=== PATIENT | female | born 1990 ===

== ENCOUNTER 2016-06-24 20:51 | Emergency (ER) | payer SELFPAY ==
[2016-06-24 20:58] VITALS: BP 108/67; PULSE 73; RESP 16; TEMP 98.2; O2SAT 99
--- NOTE | 2016-06-24 21:14 | ED PDOC ---
HPI: Female Pain Time Seen by Provider: 06/24/16 21:05 Chief Complaint (Nursing): Abdominal Pain Chief Complaint (Provider): vaginal bleeding History Per: Patient History/Exam Limitations: no limitations Onset/Duration Of Symptoms: Days (1) Current Symptoms Are (Timing): Still Present Quality Of Discomfort: Cramping Additional History Per: Patient Additional Complaint(s): 25 y/o female presents for eval of vaginal bleeding x 1 day. Associated pelvic cramping x 1 week, radiating to the lower back. Patient was seen at [facility] today and sent to ED for eval of possible cyst. Denies fever, nausea/vomiting, chest pain, changes in bowel movements, dysuria, hematuria, vaginal discharge. No reason to suspect STD Abnormal Vaginal Bleeding: Yes Last Menstral Period: 06/05/16 Past Medical History Reviewed: Historical Data, Nursing Documentation, Vital Signs Vital Signs: Last Vital Signs Temp 98.2 F 06/24/16 20:56 Pulse 73 06/24/16 20:56 Resp 16 06/24/16 20:56 BP 108/67 06/24/16 20:56 Pulse Ox 99 06/24/16 20:56 - Medical History PMH: No Chronic Diseases - Surgical History Surgical History: - Family History Family History: States: Unknown Family Hx - Home Medications Home Medications: Ambulatory Orders Medication Instructions Recorded Cyclobenzaprine HCl [Flexeril] 1 tab PO TID PRN #15 tab 01/29/14 Ibuprofen [Motrin] 600 mg PO TID PRN #30 tab 01/29/14 Nitrofurantoin Macrocrystals 1 cap PO BID #14 cap 01/29/14 [Macrobid] Doxycycline [Adoxa] 100 mg PO BID #14 tab 04/26/14 - Allergies Allergies/Adverse Reactions: Allergies Allergy/AdvReac Type Severity Reaction Status Date / Time Penicillins Allergy RASH Verified 06/24/16 20:56 Review of Systems ROS Statement: Except As Marked, All Systems Reviewed And Found Negative Genitourinary Female: Positive for: Vaginal Bleeding, Pelvic Pain Physical Exam - Reviewed Nursing Documentation Reviewed: Yes Vital Signs Reviewed: Yes - Physical Exam Appears: Positive for: Well, Non-toxic, No Acute Distress Head Exam: Positive for: ATRAUMATIC, NORMAL INSPECTION, NORMOCEPHALIC Skin: Positive for: Normal Color Eye Exam: Positive for: Normal appearance Cardiovascular/Chest: Positive for: Regular Rate, Rhythm Respiratory: Positive for: Normal Breath Sounds Gastrointestinal/Abdominal: Positive for: Bowel Sounds, Soft, Tenderness (rlq, suprapubic, llq; neg mcburney's). Negative for: Distended, Guarding Pelvic Exam: Positive for: External Exam Normal, No Cerv. Motion Tender, Blood, Other (exam chaperoned by [facility] tech). Negative for: Active Bleeding Back: Positive for: Normal Inspection Extremity: Positive for: Normal ROM Neurologic/Psych: Positive for: Alert, Oriented - Laboratory Results Result Diagrams: 06/24/16 22:00 06/24/16 22:25 Urine POC: Negative Urine dip results: Positive for: Blood. Negative for: Leukocyte Esterase, Nitrate, Ketones, Glucose - ECG ECG: Positive for: Viewed By Me (reviewed by ED attending) ECG Rhythm: Positive for: Sinus Tachycardia O2 Sat by Pulse Oximetry: 99 Pulse Ox Interpretation: Normal - Progress ED Course And Treament: labs, urine, u/s EXAM: US Pelvis, Transvaginal CLINICAL HISTORY: 25 years old, female; Pain; Pelvic pain; Patient HX: Pelvic pain & bleeding x 1day; Additional info: Pelvic pain, vaginal bleeding TECHNIQUE: Real-time transvaginal pelvic ultrasound (complete) with image documentation. Transvaginal imaging was used for better evaluation of the endometrium and adnexa. COMPARISON: No relevant prior studies available. FINDINGS: Uterus/cervix: Unremarkable in echogenicity and size measuring 7.9 x 4.9 x 4.0 cm. The uterus is anteverted.. Normal endometrial stripe thickness, measuring 5.1 mm in. No myometrial mass. Right ovary: Unremarkable in echogenicity and size measuring 4.6 x 3.9 x 2.4 cm. No mass. Normal blood flow. Left ovary: Unremarkable in echogenicity and size measuring 3.7 x 2.6 x 2.4 cm. No mass. Normal blood flow. Free fluid: No free fluid. IMPRESSION: Unremarkable sonographic evaluation of the female pelvis, as detailed above. Patient educated on findings, discharged with instructions to follow up [employer] 2-3 days. Advised Ibuprofen PRN pain. Return to ED for worsening/concerning symptoms. Disposition - Clinical Impression Clinical Impression: Vaginal bleeding, Pelvic cramping - Patient ED Disposition Is Patient to be Admitted: No Counseled Patient/Family Regarding: Studies Performed, Diagnosis, Need For Followup - Disposition [facility]errals[facility]Outside] Disposition: Routine/Home Disposition Time: 23:25 Condition: GOOD Instructions: Pelvic Pain in Women (ED) Print Language: GABONESE
[2016-06-24 22:17] LABS: BASO % 0.5 % (0.0-2.0); EOS # 0.4 K/uL (0.0-0.7); EOS % 4.2 % (0.0-4.0); HEMATOCRIT 37.5 % (34.0-47.0); LYMPH # 2.4 K/uL (1.0-4.3); LYMPH % 24.7 % (20.0-40.0); MEAN CELL VOLUME 85.4 fl (81.0-99.0); MEAN CORPUSCULAR HEMOGLOBIN 28.3 pg (27.0-31.0); MEAN CORPUSCULAR HGB CONC 33.2 g/dL (33.0-37.0); MEAN PLATELET VOLUME 8.9 fl (7.2-11.7); MONO # 0.9 K/uL (0.0-0.8); NEUT # 5.9 K/uL (1.8-7.0); NEUT % 61.6 % (50.0-75.0); RED CELL DISTRIBUTION WIDTH 13.2 % (11.5-14.5); WHITE BLOOD COUNT 9.6 K/uL (4.8-10.8)
[2016-06-24 22:38] LABS: ALB/GLOB RATIO 1.1 (1.0-2.1); ALKALINE PHOSPHATASE 66 U/L (38-126); ALT/SGPT 27 U/L (9-52); AST/SGOT 24 U/L (14-36); BILIRUBIN,TOTAL 0.3 mg/dl (0.2-1.3); BLOOD UREA NITROGEN 14 mg/dl (7-17); CALCIUM 9.3 mg/dL (8.4-10.2); CARBON DIOXIDE 24 mmol/L (22-30); CHLORIDE 105 mmol/L (98-107); GFR AFRICAN-AMERICAN > 60; GLUCOSE,RANDOM 107 mg/dL (65-105); SODIUM 142 mmol/l (132-148); TOTAL PROTEIN 7.5 G/DL (6.3-8.2)
--- NOTE | 2016-06-24 23:03 | US ---
EXAM: US Pelvis, Transvaginal CLINICAL HISTORY: 25 years old, female; Pain; Pelvic pain; Patient HX: Pelvic pain & bleeding x 1day; Additional info: Pelvic pain, vaginal bleeding TECHNIQUE: Real-time transvaginal pelvic ultrasound (complete) with image documentation. Transvaginal imaging was used for better evaluation of the endometrium and adnexa. COMPARISON: No relevant prior studies available. FINDINGS: Uterus/cervix: Unremarkable in echogenicity and size measuring 7.9 x 4.9 x 4.0 cm. The uterus is anteverted.. Normal endometrial stripe thickness, measuring 5.1 mm in. No myometrial mass. Right ovary: Unremarkable in echogenicity and size measuring 4.6 x 3.9 x 2.4 cm. No mass. Normal blood flow. Left ovary: Unremarkable in echogenicity and size measuring 3.7 x 2.6 x 2.4 cm. No mass. Normal blood flow. Free fluid: No free fluid. IMPRESSION: Unremarkable sonographic evaluation of the female pelvis, as detailed above.
== END 2016-06-24 23:43 | disposition home or self-care (01) ==
LOC: H.ER 20:51
DX: R10.2 Pelvic and perineal pain (principal); N93.9 Abnormal uterine and vaginal bleeding, unspecified; Z88.0 Allergy status to penicillin